=== PATIENT | male | born 1970 | race Caucasian/White ===

== ENCOUNTER → 2016-10-03 | Outpatient (CLI) | payer BC ==
--- NOTE | 2016-10-03 12:01 | RADRPT ---
PROCEDURE: Left knee x-ray CLINICAL INDICATION: Left knee pain. TECHNIQUE: AP, lateral and oblique views of the knee were obtained. COMPARISON: None FINDINGS: The soft tissues and bony elements are normal. The joint spaces are normal. IMPRESSION: Normal left knee. RPTAT:AAJJ Physician Chrissy Date Time Electronically viewed and signed by Lee Collier Physician on 10/03/2016 12:00 [email or web address]/
== END | disposition home or self-care (01) ==
LOC: HKI 12:39
PROVIDERS: ATTEND Orthopaedic Surgery
DX: M25.562 Pain in left knee (principal)
CPT/HCPCS: 73564; G0463